=== PATIENT | female | born 1985 | race Hispanic/Latino ===

== ENCOUNTER 2022-02-26 16:17 | Emergency (ER) | payer MEDICAID ==
[~2022-02-26] VITALS: Ht 149.9 cm; Wt 60.8 kg
[2022-02-26] MEDS ORDERED: GABA300C PO (16:59)
[2022-02-26] MEDS ORDERED: IBUP-1493 PO (16:59)
[2022-02-26] MEDS ORDERED: CYCL-309 PO (16:59)
[2022-02-26] MEDS ORDERED: PRED20TA3 PO (16:59)
[2022-02-26] MEDS ORDERED: PREDNISONE 20 MG TABLET PO ONE (17:00)
[2022-02-26] MEDS ORDERED: MORPHINE 2 MG SYG IM ONE (17:00)
[2022-02-26] MEDS ORDERED: GABAPENTIN 100 MG CAPSULE PO SCH (17:00)
[2022-02-26] MEDS ORDERED: CYCLOBENZAPRINE HCL 10 MG TABLET PO ONE (17:00)
[2022-02-26 17:54] VITALS: BP 116/68
== END 2022-02-26 18:00 | disposition home or self-care (01) ==
LOC: EDH 16:17
DX: M54.42 Lumbago with sciatica, left side (principal); G89.29 Other chronic pain; Z79.899 Other long term (current) drug therapy; Z98.890 Other specified postprocedural states
CPT/HCPCS: 96372

== ENCOUNTER 2022-12-16 18:42 | Emergency (ER) | payer MEDICAID ==
[~2022-12-16] VITALS: Ht 149.9 cm; Wt 56.7 kg
[~2022-12-16 18:42] MED LIST: CYCL-309 PO; GABA300C PO; IBUP-1493 PO; PRED20TA3 PO
[2022-12-16 20:05] VITALS: BP 132/74; PULSE 88; RESP 18; O2SAT 99
[2022-12-16 20:22] LABS: BASOPHILS # (AUTO) 0.12 K/uL (0.00-0.20); BASOPHILS % (AUTO) 0.9 % (0.0-5.0); EOSINOPHILS # (AUTO) 0.47 K/uL (0.00-0.70); EOSINOPHILS % (AUTO) 3.4 % (0.0-8.0); HEMATOCRIT 40.3 % (36-48); IMMATURE GRANULOCYTE ABSOLUTE 0.04 K/uL (0-1); LYMPHOCYTES # (AUTO) 4.3 K/uL (1.0-4.8); LYMPHOCYTES % (AUTO) 31.7 % (21.0-51.0); MEAN CORPUSCULAR HEMOGLOBIN 29.2 pg (27.0-33.0); MEAN CORPUSCULAR HGB CONC 32.5 g/dL (32.0-36.0); MONOCYTES # (AUTO) 0.7 K/uL (0.1-1.0); NEUTROPHILS % (AUTO) 58.7 % (40.0-77.0); PLATELET COUNT (AUTO) 298 K/uL (130-400); RED BLOOD CELL COUNT(AUTO) 4.48 MIL/uL (4.00-5.50); RED CELL DISTRIBUTION WIDTH 13.2 % (11.0-15.5); WHITE BLOOD COUNT (AUTO) 13.6 K/uL (4.8-10.8)
[2022-12-16 20:23] LABS: APPEARANCE,URINE TURBID (CLEAR); BILIRUBIN,URINE NEGATIVE (NEGATIVE); COLOR,URINE LIGHT-ORANGE (YELLOW); GLUCOSE, URINE (UA) NEGATIVE (NEGATIVE); KETONES,URINE NEGATIVE (NEGATIVE); LEUKOCYTE ESTERASE ,URINE 500 Leu/uL (NEGATIVE); NITRATE,URINE NEGATIVE (NEGATIVE); OCCULT BLOOD,URINE LARGE (NEGATIVE); PROTEIN,URINE 50 mg/dL (NEGATIVE); UROBILINOGEN,URINE 0.2 mg/dL (0.2-1.0)
[2022-12-16 20:26] LABS: ADD UA MICROSCOPIC YES
[2022-12-16 20:29] LABS: BACTERIA,URINE RARE /HPF (None Seen); MUCUS,URINE RARE LPF (None Seen); RBC,URINE 51-100 /HPF (0-1); SQUAMOUS EPITHELIAL CELL,UR FEW /HPF (0-2); UNCLASSIFIED CRYSTAL 12 /HPF (None Seen); WBC,URINE 26-50 /HPF (0-1)
[2022-12-16] MEDS ORDERED: ONDANSETRON 4MG INJ IVP ONE (20:30)
[2022-12-16] MEDS ORDERED: FAMOTIDINE 20MG VIAL IV ONE ×2 (20:30→21:00)
[2022-12-16] MEDS ORDERED: 0.9%NACL 1000ML 1,000 ML IV ONE (20:30)
[2022-12-16 20:34] LABS: CREATININE 0.8 mg/dL (0.5-1.5); POTASSIUM 3.2 mmol/L (3.5-5.1)
[2022-12-16 20:43] LABS: ALBUMIN 3.9 g/dL (3.5-5.0); BILIRUBIN,TOTAL 0.2 mg/dL (0.2-1.0); TOTAL PROTEIN, SERUM 7.7 g/dL (6.0-8.3)
[2022-12-16] MEDS ORDERED: DICYCLOMINE HCL 10 MG/5 ML ML PO ONE (21:00)
[2022-12-16] MEDS ORDERED: LIDOCAINE HCL 2% VISCOUS 15 ML UDCUP PO ONE (21:00)
[2022-12-16] MEDS ORDERED: MAG/ALUM/SIMETH 30 ML UDCUP PO ONE (21:00)
[2022-12-16] MEDS ORDERED: MORPHINE 2 MG SYG IVP ONE (21:00)
[2022-12-16] MEDS ORDERED: PANT40TA PO (22:11)
[2022-12-16] MEDS ORDERED: CEPH500B PO (22:11)
[2022-12-16] MEDS ORDERED: METO-296 PO (22:11)
[2022-12-16] MEDS ORDERED: CEFTRIAXONE 2GM VIAL IVPB ONE (22:30)
[2022-12-16] MEDS ORDERED: POTASSIUM BICARB/CIT AC 25 MEQ TABLET.EFF PO ONE (22:30)
== END 2022-12-16 23:10 | disposition home or self-care (01) ==
LOC: EDH 18:42
DX: K29.70 Gastritis, unspecified, without bleeding (principal); N39.0 Urinary tract infection, site not specified; E87.6 Hypokalemia; Z79.1 Long term (current) use of non-steroidal anti-inflammatories (NSAID); Z79.52 Long term (current) use of systemic steroids; Z79.899 Other long term (current) drug therapy
CPT/HCPCS: 99284; 96374; 96375; 96361; 83735; 84484; 80053; 83690; 85025; 87088; 81001; 81025; 36415; 93005; J2270; J7030; J0696; J2405; S0028; J3490